=== PATIENT | female | born 1975 | race Two or more races ===

== ENCOUNTER 2017-07-14 09:36 | Outpatient (CLI) | payer OTHER ==
[~2017-07-14 09:36] MED LIST: [UNRECOGNIZED DRUG - OTHER]
[2017-07-14] MEDS ORDERED: CELEBREX200MG PO (11:28)
[2017-07-14] MEDS ORDERED: [UNRECOGNIZED DRUG - OTHER] PO (11:29)
[2017-07-14] MEDS ORDERED: MULTIVITAMINS1 EAC9 PO (11:29)
== END 2017-07-14 09:47 | disposition home or self-care (01) ==
LOC: RAD 09:36
DX: I10 Essential (primary) hypertension (principal)

== ENCOUNTER → 2017-07-16 | Day surgery (SDC) | payer OTHER ==
[~2017-07-16] MED LIST changes: +CELEBREX200MG PO; +MULTIVITAMINS1 EAC9 PO; +[UNRECOGNIZED DRUG - OTHER] PO
== END | disposition home or self-care (01) ==
LOC: ADM 07-14 09:45 → CIR.AMB 08:30
DX: M77.11 Lateral epicondylitis, right elbow (principal); M65.831 Other synovitis and tenosynovitis, right forearm; G89.29 Other chronic pain; M25.521 Pain in right elbow

== ENCOUNTER 2018-05-03 09:14 | Outpatient (CLI) | payer OTHER | END 2018-05-03 09:21 | disposition home or self-care (01) | LOC: SONOGRAMA 09:14 → MAMO-SONO 09:15 → SONOGRAMA 09:21 | DX: M25.512 Pain in left shoulder (principal) ==

== ENCOUNTER 2019-02-24 15:48 | Emergency (ER) | payer OTHER ==
[~2019-02-24] VITALS: Ht 165.1 cm; Wt 68.5 kg
== END 2019-02-24 17:32 | disposition home or self-care (01) ==
LOC: ER 15:48
DX: M77.11 Lateral epicondylitis, right elbow (principal)